=== PATIENT | female | born 1960 | race Caucasian/White ===

== ENCOUNTER 2016-05-28 20:18 | Emergency (ER) | payer BC ==
[~2016-05-28 20:18] MED LIST: ACTONEL PO; ADVAIR 5001 DISK W/D PO; ALBUTEROL MININEB NEB; AMARYL PO; ASTELIN137 MCG INH; CALCIUM WITH D; CELEBREX PO; CERTAGEN PO; CITRUCEL500 MG PO; DICYCLOMINE HCL20 MG; DONNATAL TABL16.2 MG; EVISTA60 MG; GLUCOPHAGE XR500 MG PO; KLONOPIN PO; LEXAPRO PO; MAG-OXIDE400 MG PO; MULTI-VITAMIN1 TAB; NEXIUM; POSTURE600 MG PO; PRILOSEC PO; PROTONIX PO; TRICOR PO; TRIGLIDE; VITAMIN C PO; VITAMIN D 4001 UDTAB PO
== END 2016-05-28 21:34 | disposition home or self-care (01) ==
LOC: SED 20:18
DX: S61.213A Laceration without foreign body of left middle finger without damage to nail, initial encounter (principal); E11.9 Type 2 diabetes mellitus without complications; Z88.8 Allergy status to other drugs, medicaments and biological substances; Z23 Encounter for immunization; Z79.899 Other long term (current) drug therapy; X58.XXXA Exposure to other specified factors, initial encounter; Y92.098 Other place in other non-institutional residence as the place of occurrence of the external cause
CPT/HCPCS: 12001; 90471; 90715; 99283